=== PATIENT | male | born 1960 | race Two or more races ===

== ENCOUNTER 2022-04-11 09:10 | Outpatient (CLI) | payer BC, SELFPAY ==
[2022-04-11 12:28] LABS: Chloride* 103 mmol/L (96-114); Potassium* 4.5 mmol/L (3.6-5.1); Sodium* 140 mmol/L (135-149)
[2022-04-11 12:31] LABS: Blood Urea Nitrogen* 17 mg/dL (7-30); Carbon Dioxide* 24 mmol/L (20-32); Cholesterol* 138 mg/dL (90-199); Creatinine* 1.2 mg/dL (0.5-1.5); Estimated Glomerular Filt Rate 69 ml/min; Glucose* 90 mg/dL (60-115); Triglycerides* 261 mg/dL (40-149)
[2022-04-11 12:32] LABS: Calcium* 9.3 mg/dL (8.4-10.6); HDL Cholesterol* 29 mg/dL (>=40); LDL Cholesterol Calculated 57 mg/dL (<100)
[2022-04-11 13:00] LABS: PSA Screen* 1.78 ng/mL (0.10-4.00)
== END 2022-04-11 09:11 | disposition home or self-care (01) ==
PROVIDERS: PCP Family Medicine; Visit Provider Family Medicine
DX: Z00.00 Encounter for general adult medical examination without abnormal findings (principal); E78.5 Hyperlipidemia, unspecified; N40.0 Benign prostatic hyperplasia without lower urinary tract symptoms; Z13.1 Encounter for screening for diabetes mellitus; Z12.5 Encounter for screening for malignant neoplasm of prostate
CPT/HCPCS: 80048; 80061; 84153